=== PATIENT | female | born 1935 | race Hispanic/Latino ===

== ENCOUNTER 2018-02-27 19:57 | Inpatient (IN) | payer BC, MEDICARE ==
[2018-02-27 20:05] VITALS: BMI 25.7
--- NOTE | 2018-02-27 20:35 | EDPD ---
HPI Stroke - General Time Seen by Provider: 02/27/18 20:00 Chief Complaint: Weakness/Neurological Deficit Historian: Patient, EMS - History of Present Illness Narrative History of Present Illness (Free Text): 02/27/18 20:04 82 year old female, with past medical history of hypertension, breast CA, colitis, nerve palsy, and cardiac stents x2, presents to the Emergency Department via EMS for evaluation of transient slurred speech at home earlier today. Patient states symptoms first began approximately 10 am this morning and again later in the day noted by her daughter. Upon EMS arrival they state it was slightly noted but transient.Patient was brought to the Emergency Department for possible CVA. Patient expressed no focal weakness upon arrival to the Emergency Department.Occasional "tingling" sensation to fingers.Patient is currently asymptomatic with no somatic complaints. Patient denies any headache, dizziness, visual changes, neck pain, back pain, fever, chills, nausea , vomiting, diarrhea, abdominal pain, chest pain, numbness/tingling or any other complaints. PMD: Dr. Liu Onset:: This morning Timing: Resolved Context: Home Exacerbated by: Nothing Relieved by: Nothing - Location Location: Speech - Pain Assessment/Levels Maximum Severity: None Severity Current: None rTPA Inclusion/Exclusion - Refusal of Treatment Patient Refused Treatment: No - Inclusion Criteria for Altepase Patient is 18 years or Older: Yes The Clinical Diagnosis of Ischemic Stroke That is Causing a Potentially Disabling Neurological Deficit: No Time of Onset is Well Established to be Less Than 270 Minute Before Treatment Would Begin: No Risk/Benefit Discussed With Patient/Family Member Present: Yes - Exclusion Criteria for Altepase Uncontrolled Hypertension at Time of Treatment (Systolic BP above 185 or Diastolic BP above 110 mmHg): No Active Internal Bleeding: No Known Bleeding Diathesis Including but Not Limited to: Platelets Below 100,000/ mm,PTT Above 40 sec After Heparin Use, Current Use of Oral Anitcoagulant With INR Greater Than 1.7 or PT Greater Than 15 secs: No Evidence of an Intracranial Hemorrhage: No Evidence of Major Acute Infarct With Signs Greater Than 1/3 MCA Territory: No Suspicion of Subarachnoid Hemorrhage on Pretreatment Evaluation Even if CT Head Negative For Hemorrhage: No - Warning to TPA With Conditions Following Conditions Weighed Against Anticipated Benefit: Yes Condition: Rapid Improvement Past Medical History - Provider Review Nursing Documentation Reviewed: Yes - Cardiac Hx Hypertension: Yes Hx Pacemaker: No - Pulmonary Hx Respiratory Disorders: No - Neurological Hx Neurological Disorder: No - HEENT Other/Comment: eye issues - Endocrine/Metabolic Hx Endocrine Disorders: No - Hematological/Oncological Hx Blood Transfusions: No Hx Blood Transfusion Reaction: (NA) - Integumentary Hx Dermatological Disorder: No - Musculoskeletal/Rheumatological Hx Musculoskeletal Disorders: No - Gastrointestinal Hx Colitis: Yes - Genitourinary/Gynecological Hx Genitourinary Disorders: No - Psychiatric Hx Psychophysiologic Disorder: No Hx Emotional Abuse: No Hx Physical Abuse: No Hx Substance Use: No - Surgical History Hx Coronary Stent: Yes (2 stents) - Anesthesia Hx Anesthesia: Yes Hx Anesthesia Reactions: No Hx Malignant Hyperthermia: No - Suicidal Assessment Feels Threatened In Home Enviroment: No Family/Social History - Family/Social History Family History: Non-Contributory Allergies/Home Meds Allergies/Adverse Reactions: Allergies Penicillins Allergy (Verified 02/27/18 20:05) RASH Home Medications: Home Meds Medication Instructions Recorded Confirmed Aspirin [Ecotrin] 81 mg PO DAILY 02/21/14 02/27/18 [place]/Ca/Cu/mg/Mn/Vit C/Vit 1 tab PO DAILY 02/21/14 02/27/18 [Oscal Ultra 600] Brimonidine 0.15% [Alphagan P 5 Ml] 1 drop OU TID 02/21/14 02/27/18 Coenzyme Q10/Vitamin E [Coq10 in 1 sgl PO DAILY 02/21/14 02/27/18 Oil 100 mg-30 Iu] Folic Acid 1 mg PO DAILY 02/21/14 02/27/18 Hydrochlorothiazide [HCTZ] 12.5 mg PO DAILY 02/21/14 02/27/18 Isosorbide Dinitrate 30 mg PO DAILY 02/21/14 02/27/18 Mesalamine [Lialda] 2.4 gm PO DAILY 02/21/14 02/27/18 Metoprolol Succinate 25 mg PO BID 02/21/14 02/27/18 Multivitamin and [id number] 1 tab PO DAILY 02/21/14 02/27/18 [Centrum Silver] [place]wood-3 Fatty Acids/Fish Oil [Fish 1,000 mg PO DAILY 02/21/14 02/27/18 Oil 1,000 mg Softgel] Simvastatin 20 mg PO DAILY 02/21/14 02/27/18 Vitamin E 400 iu PO DAILY 02/21/14 02/27/18 Latanoprost [Xalatan] 1 drop OS HS 02/27/18 02/27/18 Review of Systems - Physician Review All systems were reviewed & negative as marked: Yes - Review of Systems Constitutional: absent: Fevers Respiratory: absent: SOB Cardiovascular: absent: Chest Pain Gastrointestinal: absent: Abdominal Pain, Diarrhea, Nausea, Vomiting Musculoskeletal: absent: Back Pain, Neck Pain Neurological: Speech Changes. absent: Headache, Dizziness, Focal Weakness, Facial Droop ED Stroke Physical Exam Vital Signs Reviewed: Yes Vital Signs Pulse Resp BP Pulse Ox 02/27/18 20:00 74 16 117/69 95 Temperature: Afebrile Blood Pressure: Normal Pulse: Regular Respiratory Rate: Normal Appearance: Positive for: Well-Appearing, Non-Toxic, Comfortable Pain Distress: None Mental Status: Positive for: Alert and Oriented X 3 Finger Stick Blood Glucose: 137 - Systems Exam Head: Present: Atraumatic, Normocephalic Pupils: Present: PERRL Extroacular Muscles: Present: EOMI Conjunctiva: Present: Normal Mouth: Present: Moist Mucous Membranes, Other (slight deformity left mandible( old)) Neck: Present: Normal Range of Motion Respiratory/Chest: Present: Clear to Auscultation, Good Air Exchange. No: Respiratory Distress, Accessory Muscle Use Cardiovascular: Present: Regular Rate and Rhythm, Normal S1, S2. No: Murmurs Abdomen: Present: Normal Bowel Sounds. No: Tenderness, Distention, Peritoneal Signs Genitourinary/Pelvic Exam: Present: NI. No: C, E Back: Present: GCS, CN, SP Upper Extremity: Present: Normal Inspection. No: Cyanosis, Edema Lower Extremity: Present: Normal Inspection. No: Edema Neurologic: Present: GCS=15, CN II-XII Intact, Speech Normal, Motor Func Grossly Intact, Normal Sensory Function, Memory Normal Skin: Present: Warm, Dry, Normal Color. No: Rashes Lymphatic: Present: OX3, NI, NC Psychiatric: Present: Alert, Oriented x 3, Normal Insight, Normal Concentration Medical Decision Making ED Course and Treatment: 02/27/18 20:04 Impression: 82 year old female presents to the Emergency Department for transient episode of slurred speech. Differential Diagnosis included but are not limited to: CVA Plan: -- Blood type and Screen -- CT of head -- EKG -- Labs -- Chest X-ray -- Plavix -- IV Fluids -- Reassess and disposition Prior Visits: Notes and results from previous visits were reviewed. Progress Notes: 02/27/18 20:04 CODE STROKE ACTIVATED. 02/27/18 20:[address] Mccall, who is aware and agrees with Emergency Department management plan, recommends to administer Plavix [address] of head is negative. As per Dr. Mccall, patient is currently on daily Ecotrin and does not need aspirin at the time. 02/27/18 20:20 CT of head reviewed by radiologist, shows no acute intracranial findings. Chest X-ray reviewed, shows no acute processes. 02/27/18 20:15 EKG: Ordered, reviewed, and independently interpreted the EKG. Rate : 74 BPM Rhythm : NSR Interpretation : Sinus arrhythmia, anteroseptal infarct. 02/27/18 23:[address] Mayberry, covering for Dr. Tabares, who is aware and agrees with plan. Pt will go to Telemetry observation for TIA. - Lab Interpretations I have reviewed the lab results: Yes - RAD Interpretation Radiology Orders: 02/27/18 20:06 HEAD W/O (CODE STROKE) [CT] Stat CHEST PORTABLE [RAD] Stat Final Inspector Shuttle: ED Physician, Radiologist - EKG Interpretation Interpreted by ED Physician: Yes Type: 12 lead EKG - Medication Orders Current Medication Orders: Sodium Chloride (Sodium Chloride 0.9%) 1,000 mls @ 100 mls/hr IV .Q10H ARABELLA - Scribe Statement The provider has reviewed the documentation as recorded by the Scribe Idalmis Laura. All medical record entries made by the Scribe were at my direction and personally dictated by me. I have reviewed the chart and agree that the record accurately reflects my personal performance of the history, physical exam, medical decision making, and the department course for this patient. I have also personally directed, reviewed, and agree with the discharge instructions and disposition. NIHSS Scale ([place]) Time Performed: 08:05 - How Severe is the Stoke Baseline Level of Consciousness: 0=Alert LOC to Questions: 0=Both comments correct LOC to commands: 0=Obeys both correctly Best Gaze: 0=Normal Visual: 0=No visual loss Facial: 0=Normal Motor Arm - Left: 0=No drift Motor Arm - Right: 0=No drift Motor Leg - Left: 0=No drift Motor Leg - Right: 0=No drift Limb Ataxia: 0=Absent Sensory: 0=Normal Best Language: 0=No aphasia Dysarthia: 0=Normal articulation Extinction & Inattention (Neglect): 0=Normal, no object Score: 0 Risk Level: No Stroke Risk Disposition/Present on Arrival - Present on Arrival Any Indicators Present on Arrival: No History of DVT/PE: No History of Uncontrolled Diabetes: No Urinary Catheter: No History of Decub. Ulcer: No History Surgical Site Infection Following: None - Disposition Have Diagnosis and Disposition been Completed?: Yes Diagnosis: TIA (transient ischemic attack) Disposition: HOSPITALIZED Disposition Time: 22:20 Patient Plan: Admission Patient Problems: Current Active Problems Problem Status Onset TIA (transient ischemic attack) Acute Condition: STABLE
[2018-02-27 21:10] LABS: BASO # 0.02 K/mm3 (0.0-2.0); BASO % 0.3 % (0.0-3.0); EOS # 0.2 (0.0-0.7); EOS % 2.5 % (1.5-5.0); GRAN # 4.15 (1.4-6.5); GRAN % 61.7 % (50.0-68.0); LYMPH % 29.8 % (22.0-35.0); MEAN CELL VOLUME 91.3 fl (80.0-105.0); MEAN CORPUSCULAR HEMOGLOBIN 31.1 pg (25.0-35.0); MEAN CORPUSCULAR HGB CONC 34.1 g/dl (31.0-37.0); MEAN PLATELET VOLUME 10.2 fl (7.0-11.0); MONO # 0.4 (0.1-0.6); MONO % 5.7 % (1.0-6.0); RBC 4.5 10^6/uL (3.5-6.1); RED CELL DISTRIBUTION WIDTH 13.5 % (11.5-14.5); WHITE BLOOD COUNT 6.7 10^3/ul (4.5-11.0)
[2018-02-27 21:13] LABS: ALB/GLOB RATIO 1.3 (1.1-1.8); ALBUMIN 3.8 g/dL (3.0-4.8); ALT/SGPT 32 U/L (7-56); AST/SGOT 25 U/L (14-36); BLOOD UREA NITROGEN 17 mg/dL (7-21); CALCIUM 9.1 mg/dL (8.4-10.5); GFR AFRICAN-AMERICAN > 60; GFR NON-AFRICAN AMERICAN > 60; HDL CHOLESTEROL 53 mg/dL (29-60)
[2018-02-27 21:18] LABS: INR 0.94; PARTIAL THROMBOPLASTIN TIME 25.7 Seconds (25.1-36.5); PROTHROMBIN TIME 10.7 SECONDS (9.4-12.5)
[2018-02-27 21:24] LABS: LDL CHOLESTEROL 89 mg/dL (0-129)
[2018-02-27 21:27] LABS: TROPONIN I < 0.01 ng/mL
[2018-02-27] MEDS: Sodium Chloride 0.9% 1,000 ML IV SCH (22:14)
[2018-02-28] MEDS ORDERED: Metoprolol Succinate 25 mg XL Tab PO SCH ×2 (01:00→10:00)
--- NOTE | 2018-02-28 02:02 | HP ---
Copied To: Lolis Mayberry MD Attending MD: Lolis Mayberry MD DATE OF EXAM: 02/27/2018 HISTORY OF PRESENT ILLNESS: Ms. Major is an 82-year-old female presented to the ED with a history of transit slurred speech at home earlier today. She was brought to the ED by daughter. She has history of hypertension, breast cancer in the past, colitis, cardiac stent placed. Speech was normal upon arrival to the ED. She also complained of tingling sensation in the finger. CT head was unremarkable/stroke code was called. She was given Plavix [address] Newell, she has uncontrolled hypertension on arrival, TPA was not considered because of high risk. PAST MEDICAL HISTORY: Hypertension and breast cancer, coronary stent placement, history of colitis, hypertension, coronary artery disease. PAST SURGICAL HISTORY: Coronary stent placement and breast surgery. ALLERGIES: PENICILLIN HOME MEDICATIONS: Aspirin 81 mg daily, coenzyme Q, folic acid, hydrochlorothiazide 12.5 mg daily, isosorbide dinitrate 30 mg daily, metoprolol 25 mg p.o. b.i.d., simvastatin 20 mg daily, vitamin E. REVIEW OF SYSTEMS: As per HPI. Rest of 12-point review of systems reviewed negative. PHYSICAL EXAMINATION: VITAL SIGNS: Comfortable in bed, in no acute distress. VITAL SIGNS: Temperature 98.7, heart rate 74 per minute, respiratory 16 per minute, blood pressure 117/69. HEENT: No pallor. NECK: No lymphadenopathy. CHEST: Air entry present and equal bilateral. No added sound. CARDIOVASCULAR: S1 and S2 normal. No murmur. No gallop. ABDOMEN: Soft, nontender. No hepatosplenomegaly. EXTREMITIES: No edema. [employer]: Cranial nerves intact. No focal sensory or motor deficit. Spine nontender. SKIN: No petechia and no rash. LABORATORY DATA: CAT scan of the head reportedly negative. EKG, no ST-T changes. ASSESSMENT/PLAN: 1. Transient ischemic attack. 2. Coronary artery disease. 3. Hypertension. 4. History of breast cancer. PLAN: She is admitted to the hospital, aspirin and Plavix given in the ED and Neurology consultation, Dr. Newell requested. CAT scan of the head unremarkable. We will continue home medication aspirin 81 mg daily, continue beta-kulwinder 25 mg p.o. b.i.d., mesalamine 2.4 g daily, IV fluid at 100 mL an hour. Lolis Mayberry MD
[2018-02-28] MEDS: Sodium Chloride 0.9% 1,000 ML IV SCH (07:22)
[2018-02-28] MEDS ORDERED: MESALAMINE 2.4 GM PO SCH (10:00)
--- NOTE | 2018-02-28 10:22 | CT ---
Date of service: 02/27/2018 PROCEDURE: CT HEAD WITHOUT CONTRAST. HISTORY: Code Stroke COMPARISON: Comparison made with prior MRI brain 06/13/2017 TECHNIQUE: Axial computed tomography images were obtained through the head/brain without intravenous contrast. Radiation dose: Total exam DLP = 866.06 mGy-cm. This CT exam was performed using one or more of the following dose reduction techniques: Automated exposure control, adjustment of the mA and/or kV according to patient size, and/or use of iterative reconstruction technique. FINDINGS: HEMORRHAGE: No acute parenchymal, subarachnoid or extra-axial hemorrhage. BRAIN: Previously noted mild diffuse/confluent chronic periventricular white matter ischemic changes extending peripherally into the deep and subcortical white matter both cerebral hemispheres less well seen when compared with prior MRI multiple more discrete deep and subcortical white matter, basal nuclei as well as to a lesser degree brainstem lacunar type infarcts are also less well seen when compared with the prior MRI. Note that the possibility of a small hyperacute infarct cannot be excluded on this study and there is any concern, consider followup MRI with diffusion imaging. Moderate to fairly significant generalized volume loss. . Note again made of extra-axial calcification that measures approximately 12.3 by 6.6 mm right parietal region. This probably represents a dural base calcification. The possibility of a small calcified meningioma not completely excluded. Vascular calcifications both carotid siphons and vertebral arteries. VENTRICLES: No obstructive hydrocephalus. CALVARIUM: Calvarium intact PARANASAL SINUSES: Unremarkable as visualized. No significant inflammatory changes. MASTOID AIR CELLS: Unremarkable as visualized. No inflammatory changes. OTHER FINDINGS: None. IMPRESSION: No acute intracranial hemorrhage. Chronic white matter basal nuclei and brainstem ischemic changes. Note that the possibility of a small hyperacute infarct cannot be excluded on this study. Moderate to fairly significant generalized volume loss. Of probable dural base calcification right parietal region however the possibility of a small calcified meningioma not excluded. Preliminary report provided by overnight radiology service.
[2018-02-28] MEDS: Aspirin 325 mg EC Tablets PO SCH (11:21)
[2018-02-28 12:44] LABS: FOLATE > 20.0 ng/mL
--- NOTE | 2018-02-28 13:02 | RAD ---
Date of service: 02/27/2018 HISTORY: Code Stroke COMPARISON: No prior. FINDINGS: LUNGS: No active pulmonary disease. PLEURA: No significant pleural effusion identified, no pneumothorax apparent. CARDIOVASCULAR: Heart size upper limits of normal/ borderline enlarged. The the OSSEOUS STRUCTURES: No significant abnormalities. VISUALIZED UPPER ABDOMEN: Normal. OTHER FINDINGS: None. IMPRESSION: No active disease.
--- NOTE | 2018-02-28 14:29 | MRI ---
Date of service: 02/28/2018 PROCEDURE: MRI BRAIN WITHOUT CONTRAST HISTORY: r/o CVA COMPARISON: Comparison made with prior CT scan of the brain 05/2018. TECHNIQUE: Multiplanar, multisequence MR images of the brain were obtained without intravenous contrast enhancement. FINDINGS: HEMORRHAGE: No acute parenchymal, subarachnoid nor extra-axial hemorrhage. No evidence of hemosiderin deposition is identified on gradient echo weighted sequence. DWI: There is a small elliptical shaped acute infarct in the left parasagittal midpons BRAIN PARENCHYMA: Mild -moderate diffuse/ confluent chronic periventricular white matter ischemic changes extending peripherally into the deep and subcortical white matter both cerebral hemispheres as well as multiple more discrete chronic appearing lacunar type infarcts scattered about deep and subcortical white matter, both basal nuclei and both cerebellar hemispheres also seen to better advantage on the current exam. There also appear to be a 1 or 2 tiny chronic appearing right-sided pontine lacunar type infarcts. Moderate generalized volume loss. VENTRICLES: No obstructive hydrocephalus. CRANIUM: Unremarkable. ORBITS: Orbits and contents grossly unremarkable. PARANASAL SINUSES/MASTOIDS: Clear VASCULAR SYSTEM: Visualized major vascular flow voids at skull base patent. OTHER FINDINGS: None. IMPRESSION: Small elliptical shaped acute infarct left mid olivia. Mild -moderate diffuse/ confluent chronic periventricular white matter ischemic changes extending peripherally into the deep and subcortical white matter both cerebral hemispheres as well as multiple more discrete chronic appearing lacunar type infarcts scattered about deep and subcortical white matter, both basal nuclei and both cerebellar hemispheres also seen to better advantage on the current exam. There also appear to be a 1 or 2 tiny chronic appearing right-sided pontine lacunar type infarcts. Moderate generalized volume loss. No acute intracranial hemorrhage. 2 Rikki Waite informed these findings at approximately 2:20 p.m. with written down and read back verification.
--- NOTE | 2018-02-28 14:35 | MRI ---
Date of service: 02/28/2018 PROCEDURE: Magnetic Resonance Angiography Brain HISTORY: r/o CVA COMPARISON: Comparison made with concurrent MRI of the brain as well as prior CT scan brain 02/27/2018 the TECHNIQUE: 3D time of flight MR angiography of the intracranial arteries was performed. Rotating maximum intensity projection images were generated. FINDINGS: INTERNAL CAROTID ARTERIES: Unremarkable. The skull base, petrous, cavernous and supraclinoid segments are bilaterally patent however there does appear to be some irregularity and some minimal narrowing of the distal cavernous carotid segments more so on the left side. Findings likely due to atherosclerotic disease calcified atherosclerotic disease seen to better advantage on prior bone window sequence of the prior CT scan brain ANTERIOR CEREBRAL ARTERIES: Unremarkable. A1 and A2 segments are widely patent. Smaller distal branches unremarkable, as visualized. MIDDLE CEREBRAL ARTERIES: Unremarkable. M1 and M2 segments are widely patent. Perisylvian branches grossly symmetric. POSTERIOR CIRCULATION: Distal Vertebral Arteries and Basilar Artery: Asymmetry of the distal vertebral arteries, right-sided which is larger in caliber/ more dominant than the left side. Basilar artery appears patent although there is a local area of slight caliber change in the distal 1/3 of the basilar artery of which could represent a localized area of the tortuosity and signal dropout versus mild localized stenosis. . Posterior Cerebral Arteries: origin of the right posterior cerebral artery. Posterior Inferior Cerebellar Arteries: Unremarkable. ANEURYSM/ VASCULAR MALFORMATIONS: No evidence of large aneurysm or vascular malformation OTHER FINDINGS: None. IMPRESSION: Mild atherosclerotic plaque changes both cavernous carotid segments with slight irregular narrowing of the distal cavernous segments. Asymmetry of the distal vertebral arteries, right-sided which is larger in caliber/ more dominant than the left side. Basilar artery appears patent although there is a local area of slight caliber change in the distal 1/3 of the basilar artery of which could represent a localized area of the tortuosity and signal dropout versus mild localized stenosis. . Posterior Cerebral Arteries: origin of the right posterior cerebral artery.
[2018-02-28] MEDS: Brimonidine 0.15% 50 DROP/5 ML BOTTLE OU SCH ×2 (15:54→21:54)
[2018-02-28] MEDS: [UNRECOGNIZED DRUG - OTHER] OS SCH (15:55)
--- NOTE | 2018-02-28 16:21 | CARD ---
APPROVED REPORT Date of service: 02/27/2018 EKG Measurement Heart [id number] <Conclusion> Sinus rhythm with marked sinus arrhythmia with premature atrial complexes Minimal voltage criteria for LVH, may be normal variant Anteroseptal infarct, age undetermined Abnormal ECG
[2018-02-28] MEDS ORDERED: SIMVASTATIN 20 MG PO SCH ×2 (17:00→18:41)
--- NOTE | 2018-02-28 17:52 | CP.PCM.CON ---
History of Present Illness - History of Present Illness History of Present Illness: Neurology Consultation Note: Mrs. Major is an 82-year-old woman with a past medical history of hypertension, breast cancer, colitis, facial nerve palsy, and CAD (s/p 2 stents) , who presented to the ED with complaints of slurred speech that started this morning. Her symptoms were improving. Her initial NIHSS was 2. She was not a candidate for IV tPA due to resolving symptoms. CT scan of the head did not show any acute findings. MRI of the brain was consistent with a small left mid- pontine acute ischemic stroke. MRA of the head was concerning for a focal basilar artery stenosis. Review of Systems - Review of Systems All systems: reviewed and no additional remarkable complaints except Past Patient History - Past Social History Smoking Status: Never Smoked - CARDIAC Hx Cardiac Disorders: Yes (Cardiac stents X 2) Hx Hypertension: Yes - PULMONARY Hx Respiratory Disorders: No - NEUROLOGICAL Hx Neurological Disorder: No - HEENT Hx HEENT Problems: Yes Other/Comment: eye issues - RENAL Hx Chronic Kidney Disease: No - ENDOCRINE/METABOLIC Hx Endocrine Disorders: No - HEMATOLOGICAL/ONCOLOGICAL Hx Cancer: Yes (breast) - INTEGUMENTARY Hx Dermatological Problems: No - MUSCULOSKELETAL/RHEUMATOLOGICAL Hx Musculoskeletal Disorders: No Hx Falls: No - GASTROINTESTINAL Hx Gastrointestinal Disorders: Yes (Colitis) - GENITOURINARY/GYNECOLOGICAL Hx Genitourinary Disorders: No - PSYCHIATRIC Hx Psychophysiologic Disorder: No Hx Emotional Abuse: No Hx Physical Abuse: No Hx Substance Use: No - SURGICAL HISTORY Hx Surgeries: Yes (Right breast lumpectomy) Hx Coronary Stent: Yes (2 stents) - ANESTHESIA Hx Anesthesia: Yes Hx Anesthesia Reactions: No Hx Malignant Hyperthermia: No Meds Allergies/Adverse Reactions: Allergies Allergy/AdvReac Type Severity Reaction Status Date / Time Penicillins Allergy RASH Verified 02/27/18 20:05 - Medications Medications: Current Medications Aspirin (Ecotrin) 325 mg PO DAILY [facility] Last Admin: 02/28/18 11:21 Dose: 325 mg Brimonidine Tartrate (Alphagan P 0.15% Opht) 1 drop OU Q8H [facility] Last Admin: 02/28/18 15:54 Dose: 1 drop Clopidogrel Bisulfate (Plavix) 75 mg PO DAILY [facility] Last Admin: 02/28/18 15:37 Dose: 75 mg Furosemide (Lasix) 20 mg PO DAILY [facility] Last Admin: 02/28/18 11:21 Dose: 20 mg Home Med (Home Med) 1 unit PO DIN [facility] Home Med (Home Med) 1 unit PO BRK [facility] Home Med (Home Med) 1 unit OS DAILY [facility] Last Admin: 02/28/18 15:55 Dose: 1 unit Sodium Chloride (Sodium Chloride 0.9%) 1,000 mls @ 100 mls/hr IV .Q10H [facility] Last Admin: 02/28/18 07:22 Dose: Not Given Isosorbide Dinitrate (Isordil) 30 mg PO DAILY [facility] Last Admin: 02/28/18 09:23 Dose: 30 mg Latanoprost (Xalatan Opht) 0 ml OS HS [facility] Metoprolol Tartrate (Lopressor) 25 mg PO BID [facility] Last Admin: 02/28/18 09:22 Dose: 25 mg Physical Exam - Neurological Exam Neurological exam: Alert, CN II-XII Intact, Normal Gait, Oriented x3, Reflexes Normal Additional comments: Right upper extremity with slight pronator drift. Results - Vital Signs Recent Vital Signs: Last Vital Signs Temp 98.4 F 02/28/18 12:00 Pulse 76 02/28/18 12:00 Resp 18 02/28/18 12:00 BP 135/72 02/28/18 12:00 Pulse Ox 98 02/28/18 06:00 - Labs Result Diagrams: 02/27/18 20:35 02/27/18 20:35 Labs: Laboratory Results - last 24 hr 02/28/18 02/28/18 02/28/18 06:30 06:30 06:30 ESR 17 C-React Prot High Sens 1.18 Vitamin B12 891 25-OH Vitamin D Total Folate > 20.0 02/28/18 06:30 ESR C-React Prot High Sens Vitamin B12 25-OH Vitamin D Total 13.1 L Folate Assessment & Plan (1) Ischemic stroke Assessment and Plan: The patient has multiple risk factors for stroke and appears to have a stenosis of the mid-basilar artery corresponding to the location of her most recent infarct. There is also a significant amount of chronic ischemic changes. I recommend the followin. Telemetry 2. Echocardiogram with bubble study 3. Load with Plavix 300 mg and continue aspirin 325 mg daily and Plavix 75 mg daily. Check [facility] PRU and ARU to determine platelet function testing. 4. PT/OT eval and treatment 5. Permissive HTN for the next 24-36 hours. Only treat BP that is higher than 220/110 mm Hg. 6. Fluids with NS at 100 mL/hr 7. Check HbA1c, Lipid Panel, B12, folate, TSH/T3/T4, homocysteine, hypercoagulable work-up, vitamin D level 8. Increase Zocor to 40 mg daily with goal LDL<70 mg/dL 9. Case management consult Thank you. Status: Acute Priority: High NIHSS Stroke Scale 3 - Date/Time Evaluation Performed Time Performed: 08:05 - How Severe is the Stroke Level of Consciousness: 0=Alert LOC to Questions: 0=Both comments correct Best Gaze: 0=Normal Visual: 0=No visual loss Facial: 1=Minor asymmetry Motor Arm - Left: 0=No drift Motor Arm - Right: 0=No drift Motor Leg - Left: 0=No drift Motor Leg - Right: 0=No drift Limb Ataxia: 0=Absent Sensory: 0=Normal Best Language: 0=No aphasia Dysarthia: 1=Mild to moderate slurring Extinction & Inattention (Neglect): 0=Normal, no object Severity Of Stroke: 1-4 = Minor Stroke
--- NOTE | 2018-02-28 22:07 | PN ---
Copied To: Lolis Mayberry MD Attending MD: Lolis Mayberry MD DATE: 02/28/2018 SUBJECTIVE: She is comfortable in bed, in no acute distress. She had slurring of speech before arriving to the ED, which resolved. She had been noted slurring of speech when she woke up this morning. MRI of the head is consistent with left mid pontine ischemic stroke. MRA positive for focal basilar artery stenosis. REVIEW OF SYSTEMS: As per HPI. Rest of 12-point review of systems reviewed negative. PHYSICAL EXAMINATION: GENERAL: Comfortable in bed, in no acute distress. VITAL SIGNS: Temperature 98.6, heart rate 80 per minute, respiratory rate 18 per minute, blood pressure 110/70. HEENT: No pallor. NECK: No lymphadenopathy. CHEST: Air entry present equal bilaterally. No added sounds. CARDIOVASCULAR: S1, S2 normal. No murmur. No gallop. ABDOMEN: Soft, nontender. No hepatosplenomegaly. EXTREMITIES: No edema. 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 No focal sensory motor deficit. No cranial nerve palsies. LABORATORY DATA: Labs reviewed. MEDICATIONS: Reviewed. ASSESSMENT: 1. History of breast cancer in remission, treated longtime ago. 2. Transient ischemic attack. 3. Pontine ischemic stroke, basilar artery stenosis. PLAN: She was evaluated by Neurology, Dr. Mccall. Currently on aspirin and Plavix. We will follow the recommendations. Breast cancer in remission, no evidence of recurrence. Ischemic stroke, pontine. Continue Lipitor, aspirin, Plavix, Lasix 20 mg daily, isosorbide dinitrate 30 mg daily, metoprolol 25 mg p.o. b.i.d. Lolis Mayberry MD
[2018-02-28] MEDS: Latanoprost 2.5 ml Opht Soln OS SCH (22:21)
[2018-03-01] MEDS: Sodium Chloride 0.9% 1,000 ML IV SCH (03:00)
[2018-03-01] MEDS: Brimonidine 0.15% 50 DROP/5 ML BOTTLE OU SCH ×3 (05:58→22:30)
[2018-03-01] MEDS: MESALAMINE 1.2 GM PO SCH (08:44)
[2018-03-01] MEDS: [UNRECOGNIZED DRUG - OTHER] OS SCH (09:02)
[2018-03-01] MEDS: Aspirin 325 mg EC Tablets PO SCH (09:03)
--- NOTE | 2018-03-01 09:23 | CP.PCM.PN ---
Subjective - Date & Time of Evaluation Date of Evaluation: 03/01/18 Time of Evaluation: 09:20 - Subjective Subjective: Michael Holly PGY 2 Neurology Consult Note for Dr. Matthew Patient was seen and examined at bedside. She denies any new neurological symptoms, and her slurring has improved. Per nursing staff, there are no acute overnight events. Telemetry has been discontinued this morning. Echo with bubble study is pending. She denies any weakness, numbness or tingling, headaches, changes in vision, chest pain, shortness of breath or dizziness. 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 Her right hand has been feeling "rough" for a few months, and she's been diagnosed with carpal tunnel, and her right knee is arthritic and she's had multiple injections in the joint. Objective - Vital Signs/Intake and Output Vital Signs (last 24 hours): Temp Pulse Resp BP Pulse Ox 98.4 F 93 H 20 166/76 H 92 L 03/01/18 05:52 03/01/18 09:03 03/01/18 05:52 03/01/18 09:03 03/01/18 05:52 Intake and Output: 03/01/18 03/01/18 06:59 18:59 Intake Total 1860 Output Total 3 Balance 1857 - Medications Medications: Current Medications Aspirin (Ecotrin) 325 mg PO DAILY [facility] Last Admin: 03/01/18 09:03 Dose: 325 mg Brimonidine Tartrate (Alphagan P 0.15% Opht) 1 drop OU Q8H [facility] Last Admin: 03/01/18 05:58 Dose: 1 drop Clopidogrel Bisulfate (Plavix) 75 mg PO DAILY [facility] Last Admin: 03/01/18 09:03 Dose: 75 mg Furosemide (Lasix) 20 mg PO DAILY [facility] Last Admin: 03/01/18 09:03 Dose: 20 mg Home Med (Home Med) 1 unit PO BRK [facility] Last Admin: 03/01/18 08:44 Dose: 1 unit Home Med (Home Med) 1 unit OS DAILY [facility] Last Admin: 03/01/18 09:02 Dose: 1 unit Home Med (Home Med) 2 unit PO DIN [facility] Sodium Chloride (Sodium Chloride 0.9%) 1,000 mls @ 100 mls/hr IV .Q10H [facility] Last Admin: 03/01/18 03:00 Dose: 100 mls/hr Isosorbide Dinitrate (Isordil) 30 mg PO DAILY [facility] Last Admin: 03/01/18 09:04 Dose: 30 mg Latanoprost (Xalatan Opht) 0 ml OS HS [facility] Last Admin: 02/28/18 22:21 Dose: 2.5 ml Metoprolol Tartrate (Lopressor) 25 mg PO BID [facility] Last Admin: 03/01/18 09:03 Dose: 25 mg - Labs Labs: PT 10.7 SECONDS (9.4-12.5) 02/27/18 20:35 INR 0.94 02/27/18 20:35 APTT 25.7 Seconds (25.1-36.5) 02/27/18 20:35 - Constitutional Appears: Well, Non-toxic, No Acute Distress - Head Exam Head Exam: ATRAUMATIC, NORMAL INSPECTION, NORMOCEPHALIC - Eye Exam Eye Exam: Conjunctival injection, EOMI, Normal appearance, PERRL - ENT Exam ENT Exam: Mucous Membranes Moist - Neck Exam Neck Exam: Full ROM - Respiratory Exam Respiratory Exam: NORMAL BREATHING PATTERN. absent: Respiratory Distress - Cardiovascular Exam Cardiovascular Exam: RRR, +S1, +S2 - GI/Abdominal Exam GI & Abdominal Exam: Soft. absent: Distended, Tenderness - Extremities Exam Extremities Exam: Full ROM. absent: Calf Tenderness, Pedal Edema - Back Exam Back Exam: NORMAL INSPECTION - Neurological Exam Neurological Exam: Alert, Awake, CN II-XII Intact (grossly), Oriented x3. absent: Motor Sensory Deficit Neuro motor strength exam: Left Upper Extremity: 5, Right Upper Extremity: 5, Left Lower Extremity: 5, Right Lower Extremity: 5 Additional comments: no facial droop noted symmetrical facial sensation and facial movements full ROM x4 extremities - Psychiatric Exam Psychiatric exam: Normal Mood - Skin Skin Exam: Warm Assessment and Plan - Assessment and Plan (Free Text) Assessment: 82-year-old female with a PMH of breast CA, meningioma, CAD s/p 2 stents in , colitis, HTN and prior CVA who presents with transient slurring of speech , noted to have acute ischemic stroke in left mid pontine region on MRI, and MRA concerning for focal basilar artery stenosis. Patient is on aspirin/Plavix and statin dose has been increased. Plan: Acute ischemic CVA - Continue aspirin 325 mg/Plavix 75 mg indefinitely - Continue Zocor 40 mg daily with goal LDL < 70 - Echo with bubble study - PT/OT eval and treatment - Continue permissive HTN today, only treat BP higher than 220/110 mmHg - Continue NS at 100 - Strict glycemic control - Further recs per Dr. Matthew Case was reviewed and discussed with attending, Dr. Matthew
--- NOTE | 2018-03-01 10:16 | CP.PCM.DIS ---
<AngieRosemaryJossie - Last Filed: 03/01/18 13:56> Provider - Provider Date of Admission: 02/28/18 18:30 Attending physician: Carlos Tabares MD Primary care physician: Lars Liu MD Time Spent in preparation of Discharge (in minutes): 30 Diagnosis - Discharge Diagnosis (1) Newly diagnosed diabetes Status: Acute (2) Ischemic stroke Status: Acute Priority: High Hospital Course - Lab Results Lab Results: Most Recent Lab Values WBC 6.7 10^3/ul (4.5-11.0) 02/27/18 20:35 RBC 4.50 10^6/uL (3.5-6.1) 02/27/18 20:35 Hgb 14.0 g/dL (12.0-16.0) 02/27/18 20:35 Hct 41.1 % (36.0-48.0) 02/27/18 20:35 MCV 91.3 fl (80.0-105.0) 02/27/18 20:35 MCH 31.1 pg (25.0-35.0) 02/27/18 20:35 MCHC 34.1 g/dl (31.0-37.0) 02/27/18 20:35 RDW 13.5 % (11.5-14.5) 02/27/18 20:35 Plt Count 258 10^3/uL (120.0-450.0) 02/27/18 20:35 MPV 10.2 fl (7.0-11.0) 02/27/18 20:35 Gran % 61.7 % (50.0-68.0) 02/27/18 20:35 Lymph % (Auto) 29.8 % (22.0-35.0) 02/27/18 20:35 [place] % (Auto) 5.7 % (1.0-6.0) 02/27/18 20:35 Eos % (Auto) 2.5 % (1.5-5.0) 02/27/18 20:35 Baso % (Auto) 0.3 % (0.0-3.0) 02/27/18 20:35 Gran # 4.15 (1.4-6.5) 02/27/18 20:35 Lymph # (Auto) 2.0 (1.2-3.4) 02/27/18 20:35 [place] # (Auto) 0.4 (0.1-0.6) 02/27/18 20:35 Eos # (Auto) 0.2 (0.0-0.7) 02/27/18 20:35 Baso # (Auto) 0.02 K/mm3 (0.0-2.0) 02/27/18 20:35 ESR 17 mm/hr (0.0-20.0) 02/28/18 06:30 PT 10.7 SECONDS (9.4-12.5) 02/27/18 20:35 INR 0.94 02/27/18 20:35 APTT 25.7 Seconds (25.1-36.5) 02/27/18 20:35 Sodium 142 mmol/L (132-148) 02/27/18 20:35 Potassium 3.9 mmol/L (3.6-5.0) 02/27/18 20:35 Chloride 107 mmol/L (98-107) 02/27/18 20:35 Carbon Dioxide 24 mmol/L (21-33) 02/27/18 20:35 Anion Gap 14 (10-20) 02/27/18 20:35 BUN 17 mg/dL (7-21) 02/27/18 20:35 Creatinine 0.7 mg/dl (0.7-1.2) 02/27/18 20:35 Est GFR ( Amer) > 60 02/27/18 20:35 Est GFR (Non-Af Amer) > 60 02/27/18 20:35 Random Glucose 135 mg/dL (70-110) H 02/27/18 20:35 Hemoglobin A1c 7.3 % (4.2-6.5) H 02/27/18 20:35 Calcium 9.1 mg/dL (8.4-10.5) 02/27/18 20:35 Total Bilirubin 0.5 mg/dL (0.2-1.3) 02/27/18 20:35 AST 25 U/L (14-36) 02/27/18 20:35 ALT 32 U/L (7-56) 02/27/18 20:35 Alkaline Phosphatase 67 U/L (38-126) 02/27/18 20:35 Troponin I < 0.01 ng/mL 02/27/18 20:35 C-React Prot High Sens 1.18 mg/L (1.00-3.00) 02/28/18 06:30 Total Protein 6.8 g/dL (5.8-8.3) 02/27/18 20:35 Albumin 3.8 g/dL (3.0-4.8) 02/27/18 20:35 Globulin 3.0 gm/dL 02/27/18 20:35 Albumin/Globulin Ratio 1.3 (1.1-1.8) 02/27/18 20:35 Triglycerides 165 mg/dL (35-160) H 02/27/18 20:35 Cholesterol 172 mg/dL (130-200) 02/27/18 20:35 LDL Cholesterol Direct 89 mg/dL (0-129) 02/27/18 20:35 HDL Cholesterol 53 mg/dL (29-60) 02/27/18 20:35 Vitamin B12 891 pg/mL (239-931) 02/28/18 06:30 25-OH Vitamin D Total 13.1 NG/ML (30.0-100.0) L 02/28/18 06:30 Folate > 20.0 ng/mL 02/28/18 06:30 Blood Type A POSITIVE 02/27/18 20:37 Blood Type Confirm A POSITIVE 02/27/18 22:13 Antibody Screen Negative 02/27/18 20:37 BBK History Checked No verified bt 02/27/18 20:37 - Hospital Course Hospital Course: PGY-[address] Tabares Ms Major, 82F, with Hx breast CA, CAD s/p stent on Aspirin 81, HTN, colitis, Glaucoma, and chronic red eye issue, admitted for transient slurred speech at home and tingling sensation in fingers. Code stroke was called. NIHSS 2. She was given plavix 300 in the ED. TpA was not given due to symptom resolving and low NIHSS score. VS stable in ED. SBP highest was at 176/88. EKG showed sinus 74 with sinus arrhthmia with PAC. QTc [address] (02/27) showed no acute intracranial hemorrhage, small hyperacute infarct at basal nuclei/brainstem cannot rule out. Small calfified meningioma cannot excluded. Brain MRI (02/28) showed small ellipitlcal acute infarct left mid olivia. 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 There is also significant amount of chronic ischemic changes in brain. Echocardiogram with bubble study was performed to r/o PFO. Pt should follow up with juke box mechanic for result or possible intervention as needed. Per neuro, pt should be on plavix daily and continue aspirin 325. Pending PRU and ARU to determine platelet functioning. PT and OT recommended acute rehab. During the hospital stay, her A1C was 7.3. She is diagnosed with new DM. She will be placed on insulin sliding scale for now with diabetes education. She should go to Acute rehab on insulin sliding scale for strict glycemic control and start hypoglycemic agents outpatient Her lipid was checked, zocor was increased with goal LDL < 70 Pending folate, TSH/T3/T4, homocystein, hypercoagulable work-up, vit D level. Patient should follow up with primary care doctor for these results s/r/d/w Dr. Tabares Discharge Exam - Head Exam Head Exam: ATRAUMATIC, NORMAL INSPECTION, NORMOCEPHALIC - Eye Exam Eye Exam: Conjunctival injection (chronic), EOMI, Normal appearance, PERRL - ENT Exam ENT Exam: Mucous Membranes Moist - Neck Exam Additional comments: supple - Respiratory Exam Respiratory Exam: Clear to PA & Lateral, NORMAL BREATHING PATTERN. absent: Rales, Rhonchi, Wheezes - Cardiovascular Exam Cardiovascular Exam: REGULAR RHYTHM, +S1, +S2 - GI/Abdominal Exam GI & Abdominal Exam: Normal Bowel Sounds, Soft, Unremarkable. absent: Distended , Firm, Guarding, Rigid, Tenderness - Extremities Exam Extremities exam: normal capillary refill, pedal pulses present - Neurological Exam Neurological exam: Alert, CN II-XII Intact, Oriented x3 Additional comments: move all extremities equally, motor/sensory grossly intact. coordination intact - Psychiatric Exam Psychiatric exam: Normal Affect, Normal Mood - Skin Skin Exam: Dry, Warm Discharge Plan - Discharge Medications Prescriptions: Aspirin 325 mg PO DAILY #30 tab Simvastatin 40 mg PO HS #30 tablet - Follow Up Plan Condition: STABLE Disposition: REHAB FACILITY/REHAB UNIT Additional Instructions: Follow up with neurologist for imaging result and stroke Follow up with primary care doctor for this hospitalization, new diabetes, lab work result. While at the hospital, you are on insulin sliding scale for tight blood sugar control. Recommend to start oral hypoglycemic medicine outpatient. New med: (1) plavix (2) Simvastatin 40, (3) Aspirin full strength at 325mg Referrals: Lars Liu MD [Primary Care Provider] - 1 Week Francois Mccall MD [Staff Provider] - 1 Week <Carlos Tabares - Last Filed: 03/01/18 21:18> Provider - Provider Date of Admission: 02/28/18 18:30 Attending physician: Carlos Tabares MD Primary care physician: Lars Liu MD Hospital Course - Lab Results Lab Results: Most Recent Lab Values WBC 6.7 10^3/ul (4.5-11.0) 02/27/18 20:35 RBC 4.50 10^6/uL (3.5-6.1) 02/27/18 20:35 Hgb 14.0 g/dL (12.0-16.0) 02/27/18 20:35 Hct 41.1 % (36.0-48.0) 02/27/18 20:35 MCV 91.3 fl (80.0-105.0) 02/27/18 20:35 MCH 31.1 pg (25.0-35.0) 02/27/18 20:35 MCHC 34.1 g/dl (31.0-37.0) 02/27/18 20:35 RDW 13.5 % (11.5-14.5) 02/27/18 20:35 Plt Count 258 10^3/uL (120.0-450.0) 02/27/18 20:35 MPV 10.2 fl (7.0-11.0) 02/27/18 20:35 Gran % 61.7 % (50.0-68.0) 02/27/18 20:35 Lymph % (Auto) 29.8 % (22.0-35.0) 02/27/18 20:35 [place] % (Auto) 5.7 % (1.0-6.0) 02/27/18 20:35 Eos % (Auto) 2.5 % (1.5-5.0) 02/27/18 20:35 Baso % (Auto) 0.3 % (0.0-3.0) 02/27/18 20:35 Gran # 4.15 (1.4-6.5) 02/27/18 20:35 Lymph # (Auto) 2.0 (1.2-3.4) 02/27/18 20:35 [place] # (Auto) 0.4 (0.1-0.6) 02/27/18 20:35 Eos # (Auto) 0.2 (0.0-0.7) 02/27/18 20:35 Baso # (Auto) 0.02 K/mm3 (0.0-2.0) 02/27/18 20:35 ESR 17 mm/hr (0.0-20.0) 02/28/18 06:30 PT 10.7 SECONDS (9.4-12.5) 02/27/18 20:35 INR 0.94 02/27/18 20:35 APTT 25.7 Seconds (25.1-36.5) 02/27/18 20:35 Sodium 142 mmol/L (132-148) 02/27/18 20:35 Potassium 3.9 mmol/L (3.6-5.0) 02/27/18 20:35 Chloride 107 mmol/L (98-107) 02/27/18 20:35 Carbon Dioxide 24 mmol/L (21-33) 02/27/18 20:35 Anion Gap 14 (10-20) 02/27/18 20:35 BUN 17 mg/dL (7-21) 02/27/18 20:35 Creatinine 0.7 mg/dl (0.7-1.2) 02/27/18 20:35 Est GFR ( Amer) > 60 02/27/18 20:35 Est GFR (Non-Af Amer) > 60 02/27/18 20:35 POC Glucose (mg/dL) 171 mg/dL (65-110) H 03/01/18 16:02 Random Glucose 135 mg/dL (70-110) H 02/27/18 20:35 Hemoglobin A1c 7.3 % (4.2-6.5) H 02/27/18 20:35 Calcium 9.1 mg/dL (8.4-10.5) 02/27/18 20:35 Total Bilirubin 0.5 mg/dL (0.2-1.3) 02/27/18 20:35 AST 25 U/L (14-36) 02/27/18 20:35 ALT 32 U/L (7-56) 02/27/18 20:35 Alkaline Phosphatase 67 U/L (38-126) 02/27/18 20:35 Troponin I < 0.01 ng/mL 02/27/18 20:35 C-React Prot High Sens 1.18 mg/L (1.00-3.00) 02/28/18 06:30 Total Protein 6.8 g/dL (5.8-8.3) 02/27/18 20:35 Albumin 3.8 g/dL (3.0-4.8) 02/27/18 20:35 Globulin 3.0 gm/dL 02/27/18 20:35 Albumin/Globulin Ratio 1.3 (1.1-1.8) 02/27/18 20:35 Triglycerides 165 mg/dL (35-160) H 02/27/18 20:35 Cholesterol 172 mg/dL (130-200) 02/27/18 20:35 LDL Cholesterol Direct 89 mg/dL (0-129) 02/27/18 20:35 HDL Cholesterol 53 mg/dL (29-60) 02/27/18 20:35 Vitamin B12 891 pg/mL (239-931) 02/28/18 06:30 25-OH Vitamin D Total 13.1 NG/ML (30.0-100.0) L 02/28/18 06:30 Folate > 20.0 ng/mL 02/28/18 06:30 Blood Type A POSITIVE 02/27/18 20:37 Blood Type Confirm A POSITIVE 02/27/18 22:13 Antibody Screen Negative 02/27/18 20:37 BBK History Checked No verified bt 02/27/18 20:37 - Hospital Course Hospital Course: Pt seen and examined. I have reviewed the note of the medical billing coder and agree with it. I have discussed the assessment and plan with the resident. I have reviewed the patient's labs and medications. Pt with acute CVA and will go to acute rehab. MRI was reviewed. Pt placed on ASA and Plavix. On Zocor for CVA.
[2018-03-01] MEDS: Insulin Reg-LOW-Coverage SC SCH ×3 (17:19→22:02)
--- NOTE | 2018-03-01 18:39 | CARD ---
APPROVED REPORT Date of service: 03/01/2018 EXAM: Two-dimensional and M-mode echocardiogram with Doppler and color Doppler. INDICATION CVA/ R/O PFO..BUBBLE STUDY 2D DIMENSIONS Left Atrium (2D)4.5 (1.6-4.0cm)IVSd1.0 (0.7-1.1cm) LVDd4.9 (3.9-5.9cm)PWd1.1 (0.7-1.1cm) LVDs4.0 (2.5-4.0cm)FS (%) 17.4 % LVEF (%)36.3 (>50%) M-Mode DIMENSIONS Aortic Root2.80 (2.2-3.7cm)Aortic Cusp Exc.1.30 (1.5-2.0cm) Aortic Valve AoV Peak Wetehoaz367.0cm/sAoV VTI32.9cmAO Peak GR.9mmHg LVOT Peak Mcpjkopl84.7cm/sLVOT VTI14.60cmAO Mean GR.5mmHg Mitral Valve MV E Zbhlsyku07.3cm/sMV A Qcoexfww26.0cm/sE/A ratio0.7 TDI Lateral E' Peak V4.78cm/sMedial E' Peak V3.80cm/sE/Lateral E'11.4 E/Medial E'14.3 Pulmonary Valve PV Peak Cvggbipy74.7cm/sPV Peak Grad.2mmHg Tricuspid Valve TR Peak Xopmtibj956ly/sRAP [id number] Peak Gr.23mmHg [id number] LEFT VENTRICLE The left ventricle is normal size. There is mild to moderate concentric left ventricular hypertrophy. Proximal septal thickening is noted. The systolic function is moderately impaired.EF-25-30% There is moderate hypokinesis in the apical anterior wall. Transmitral Doppler flow pattern is Grade III-reversible restrictive diastolic dysfunction. No left ventricle thrombus noted on this study. There is no ventricular septal defect visualized. There is no left ventricular aneurysm. There is no mass noted in the left ventricle. RIGHT VENTRICLE The right ventricle is normal size. There is normal right ventricular wall thickness. The right ventricular systolic function is normal. ATRIA The left atrium is mildly dilated. The right atrium size is normal. The interatrial septum is intact with no evidence for an atrial septal defect, By Bubble study and color flow. AORTIC VALVE The aortic valve is thickened but opens well. The aortic valve is moderately sclerotic. There is trace to mild aortic regurgitation. There is no aortic valvular stenosis. There is no aortic valvular vegetation. MITRAL VALVE The mitral valve is thickened but opens well. Mitral regurgitation is mild. There is no mitral valve stenosis. There is no evidence of mitral valve prolapse. TRICUSPID VALVE The tricuspid valve leaflets are thickened , but open well. There is mild tricuspid regurgitation.RVSP-33 of Hg. There is no tricuspid valve stenosis. There is no tricuspid valve prolapse or vegetation. PULMONIC VALVE The pulmonic valve is borderline thickened. Trivial PI There is no pulmonic valvular stenosis. GREAT VESSELS The aortic root is normal in size. The ascending aorta is normal in size. The pulmonary artery is normal. The IVC is normal in size and collapses >50% with inspiration. PERICARDIAL EFFUSION There is no pleural effusion. There is no pericardial effusion. <Conclusion> The left ventricle is normal size. There is mild to moderate concentric left ventricular hypertrophy. Proximal septal thickening is noted. The systolic function is moderately impaired.EF-25-30% There is trace to mild aortic regurgitation. Mitral regurgitation is mild. There is mild tricuspid regurgitation.RVSP-33 of Hg. The IVC is normal in size and collapses >50% with inspiration. There is no pericardial effusion. No Vegetation or thrombus noted. The interatrial septum is intact with no evidence for an atrial septal defect, By Bubble study and color flow.
[2018-03-01] MEDS: Latanoprost 2.5 ml Opht Soln OS SCH (21:05)
[2018-03-02] MEDS: Brimonidine 0.15% 50 DROP/5 ML BOTTLE OU SCH (06:37)
[2018-03-02 07:22] VITALS: BP 166/69; RESP 18; TEMP 98.5; O2SAT 97
[2018-03-02 07:31] LABS: BASO # 0.02 K/mm3 (0.0-2.0); BASO % 0.3 % (0.0-3.0); EOS # 0.3 (0.0-0.7); EOS % 4.5 % (1.5-5.0); GRAN # 4.09 (1.4-6.5); GRAN % 53.9 % (50.0-68.0); HEMOGLOBIN 14.7 g/dL (12.0-16.0); LYMPH # 2.5 (1.2-3.4); LYMPH % 32.5 % (22.0-35.0); MEAN CELL VOLUME 90.7 fl (80.0-105.0); MEAN CORPUSCULAR HGB CONC 34.2 g/dl (31.0-37.0); MEAN PLATELET VOLUME 10.5 fl (7.0-11.0); MONO # 0.7 (0.1-0.6); MONO % 8.8 % (1.0-6.0); RBC 4.74 10^6/uL (3.5-6.1); RED CELL DISTRIBUTION WIDTH 13.8 % (11.5-14.5); WHITE BLOOD COUNT 7.6 10^3/ul (4.5-11.0)
[2018-03-02 07:40] LABS: BLOOD UREA NITROGEN 15 mg/dL (7-21); CALCIUM 9.2 mg/dL (8.4-10.5); GFR AFRICAN-AMERICAN > 60; GFR NON-AFRICAN AMERICAN > 60
--- NOTE | 2018-03-02 09:26 | CP.PCM.DIS ---
<AngieJossie - Last Filed: 03/02/18 14:35> Provider - Provider Date of Admission: 02/28/18 18:30 Attending physician: Carlos Tabares MD Primary care physician: Lars Liu MD Time Spent in preparation of Discharge (in minutes): 30 Diagnosis - Discharge Diagnosis (1) Newly diagnosed diabetes Status: Acute (2) Ischemic stroke Status: Acute Priority: High Hospital Course - Lab Results Lab Results: Most Recent Lab Values WBC 7.6 10^3/ul (4.5-11.0) 03/02/18 07:00 RBC 4.74 10^6/uL (3.5-6.1) 03/02/18 07:00 Hgb 14.7 g/dL (12.0-16.0) 03/02/18 07:00 Hct 43.0 % (36.0-48.0) 03/02/18 07:00 MCV 90.7 fl (80.0-105.0) 03/02/18 07:00 MCH 31.0 pg (25.0-35.0) 03/02/18 07:00 MCHC 34.2 g/dl (31.0-37.0) 03/02/18 07:00 RDW 13.8 % (11.5-14.5) 03/02/18 07:00 Plt Count 287 10^3/uL (120.0-450.0) 03/02/18 07:00 MPV 10.5 fl (7.0-11.0) 03/02/18 07:00 Gran % 53.9 % (50.0-68.0) 03/02/18 07:00 Lymph % (Auto) 32.5 % (22.0-35.0) 03/02/18 07:00 [place] % (Auto) 8.8 % (1.0-6.0) H 03/02/18 07:00 Eos % (Auto) 4.5 % (1.5-5.0) 03/02/18 07:00 Baso % (Auto) 0.3 % (0.0-3.0) 03/02/18 07:00 Gran # 4.09 (1.4-6.5) 03/02/18 07:00 Lymph # (Auto) 2.5 (1.2-3.4) 03/02/18 07:00 [place] # (Auto) 0.7 (0.1-0.6) H 03/02/18 07:00 Eos # (Auto) 0.3 (0.0-0.7) 03/02/18 07:00 Baso # (Auto) 0.02 K/mm3 (0.0-2.0) 03/02/18 07:00 ESR 17 mm/hr (0.0-20.0) 02/28/18 06:30 PT 10.7 SECONDS (9.4-12.5) 02/27/18 20:35 INR 0.94 02/27/18 20:35 APTT 25.7 Seconds (25.1-36.5) 02/27/18 20:35 Sodium 142 mmol/L (132-148) 03/02/18 07:00 Potassium 4.1 mmol/L (3.6-5.0) 03/02/18 07:00 Chloride 106 mmol/L (98-107) 03/02/18 07:00 Carbon Dioxide 27 mmol/L (21-33) 03/02/18 07:00 Anion Gap 13 (10-20) 03/02/18 07:00 BUN 15 mg/dL (7-21) 03/02/18 07:00 Creatinine 0.7 mg/dl (0.7-1.2) 03/02/18 07:00 Est GFR ( Amer) > 60 03/02/18 07:00 Est GFR (Non-Af Amer) > 60 03/02/18 07:00 POC Glucose (mg/dL) 132 mg/dL (65-110) H 03/02/18 06:28 Random Glucose 132 mg/dL (70-110) H 03/02/18 07:00 Hemoglobin A1c 7.3 % (4.2-6.5) H 02/27/18 20:35 Calcium 9.2 mg/dL (8.4-10.5) 03/02/18 07:00 Total Bilirubin 0.5 mg/dL (0.2-1.3) 02/27/18 20:35 AST 25 U/L (14-36) 02/27/18 20:35 ALT 32 U/L (7-56) 02/27/18 20:35 Alkaline Phosphatase 67 U/L (38-126) 02/27/18 20:35 Troponin I < 0.01 ng/mL 02/27/18 20:35 C-React Prot High Sens 1.18 mg/L (1.00-3.00) 02/28/18 06:30 Total Protein 6.8 g/dL (5.8-8.3) 02/27/18 20:35 Albumin 3.8 g/dL (3.0-4.8) 02/27/18 20:35 Globulin 3.0 gm/dL 02/27/18 20:35 Albumin/Globulin Ratio 1.3 (1.1-1.8) 02/27/18 20:35 Triglycerides 165 mg/dL (35-160) H 02/27/18 20:35 Cholesterol 172 mg/dL (130-200) 02/27/18 20:35 LDL Cholesterol Direct 89 mg/dL (0-129) 02/27/18 20:35 HDL Cholesterol 53 mg/dL (29-60) 02/27/18 20:35 Vitamin B12 891 pg/mL (239-931) 02/28/18 06:30 25-OH Vitamin D Total 13.1 NG/ML (30.0-100.0) L 02/28/18 06:30 Folate > 20.0 ng/mL 02/28/18 06:30 Blood Type A POSITIVE 02/27/18 20:37 Blood Type Confirm A POSITIVE 02/27/18 22:13 Antibody Screen Negative 02/27/18 20:37 BBK History Checked No verified bt 02/27/18 20:37 - Hospital Course Hospital Course: PGY-[address] Tabares Ms Major, 82F, with Hx breast CA, CAD s/p stent on Aspirin 81, HTN, colitis, Glaucoma, and chronic red eye issue, admitted for transient slurred speech at home and tingling sensation in fingers. Code stroke was called. NIHSS 2. She was given plavix 300 in the ED. TpA was not given due to symptom resolving and low NIHSS score. VS stable in ED. SBP highest was at 176/88. EKG showed sinus 74 with sinus arrhthmia with PAC. QTc [address] (02/27) showed no acute intracranial hemorrhage, small hyperacute infarct at basal nuclei/brainstem cannot rule out. Small calfified meningioma cannot excluded. Brain MRI (02/28) showed small ellipitlcal acute infarct left mid olivia. 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 There is also significant amount of chronic ischemic changes in brain. Echocardiogram with bubble study was performed to r/o PFO. Pt should follow up with coil connector repairer for result or possible intervention as needed. Per neuro, pt should be on plavix daily and continue aspirin 325. Pending PRU and ARU to determine platelet functioning. PT and OT recommended acute rehab. During the hospital stay, her A1C was 7.3. She is diagnosed with new DM. She will be placed on insulin sliding scale for now with diabetes education. She should go to Acute rehab on insulin sliding scale for strict glycemic control and start hypoglycemic agents outpatient Her lipid was checked, zocor was increased with goal LDL < 70 Pending folate, TSH/T3/T4, homocystein, hypercoagulable work-up, vit D level. Patient should follow up with primary care doctor for these results Bed is available today. Pt VS stable. she will be transferred to rehab today s/r/d/w Dr. Tabares Discharge Exam - Head Exam Head Exam: ATRAUMATIC, NORMAL INSPECTION, NORMOCEPHALIC - Eye Exam Eye Exam: Conjunctival injection (chronic), EOMI, Normal appearance, PERRL. absent: Scleral icterus - ENT Exam ENT Exam: Mucous Membranes Moist - Neck Exam Additional comments: supple - Respiratory Exam Respiratory Exam: Clear to PA & Lateral. absent: Rales, Rhonchi, Wheezes - Cardiovascular Exam Cardiovascular Exam: REGULAR RHYTHM, +S1, +S2 - GI/Abdominal Exam GI & Abdominal Exam: Normal Bowel Sounds, Soft, Unremarkable - Extremities Exam Extremities exam: pedal pulses present - Back Exam Back exam: absent: CVA tenderness (L), CVA tenderness (R) - Neurological Exam Neurological exam: Alert, Oriented x3 Additional comments: move all extremities equally, motor/sensory grossly intact. coordination intact short step in gait - Psychiatric Exam Psychiatric exam: Normal Affect, Normal Mood - Skin Skin Exam: Dry, Warm Discharge Plan - Discharge Medications Prescriptions: Simvastatin 40 mg PO HS #30 tablet - Follow Up Plan Condition: STABLE Disposition: REHAB FACILITY/REHAB UNIT Instructions: Stroke (DC), Transient Ischemic Attack (DC), Blood Glucose Monitoring, Diabetes Type 2 (DC), Diabetic Meal Planning , Diabetes and Diet Additional Instructions: Follow up with neurologist for imaging result and stroke Follow up with primary care doctor for this hospitalization, new diabetes, lab work result. While at the hospital, you are on insulin sliding scale for tight blood sugar control. Recommend to start oral hypoglycemic medicine outpatient. New med: (1) plavix (2) Simvastatin 40, (3) Aspirin full strength at 325mg Referrals: Lars Liu MD [Primary Care Provider] - 1 Week Francois Mccall MD [Staff Provider] - 1 Week <Carlos Tabares - Last Filed: 03/02/18 18:59> Provider - Provider Date of Admission: 02/28/18 18:30 Attending physician: Carlos Tabares MD Primary care physician: Lars Liu MD Hospital Course - Lab Results Lab Results: Most Recent Lab Values WBC 7.6 10^3/ul (4.5-11.0) 03/02/18 07:00 RBC 4.74 10^6/uL (3.5-6.1) 03/02/18 07:00 Hgb 14.7 g/dL (12.0-16.0) 03/02/18 07:00 Hct 43.0 % (36.0-48.0) 03/02/18 07:00 MCV 90.7 fl (80.0-105.0) 03/02/18 07:00 MCH 31.0 pg (25.0-35.0) 03/02/18 07:00 MCHC 34.2 g/dl (31.0-37.0) 03/02/18 07:00 RDW 13.8 % (11.5-14.5) 03/02/18 07:00 Plt Count 287 10^3/uL (120.0-450.0) 03/02/18 07:00 MPV 10.5 fl (7.0-11.0) 03/02/18 07:00 Gran % 53.9 % (50.0-68.0) 03/02/18 07:00 Lymph % (Auto) 32.5 % (22.0-35.0) 03/02/18 07:00 [place] % (Auto) 8.8 % (1.0-6.0) H 03/02/18 07:00 Eos % (Auto) 4.5 % (1.5-5.0) 03/02/18 07:00 Baso % (Auto) 0.3 % (0.0-3.0) 03/02/18 07:00 Gran # 4.09 (1.4-6.5) 03/02/18 07:00 Lymph # (Auto) 2.5 (1.2-3.4) 03/02/18 07:00 [place] # (Auto) 0.7 (0.1-0.6) H 03/02/18 07:00 Eos # (Auto) 0.3 (0.0-0.7) 03/02/18 07:00 Baso # (Auto) 0.02 K/mm3 (0.0-2.0) 03/02/18 07:00 ESR 17 mm/hr (0.0-20.0) 02/28/18 06:30 PT 10.7 SECONDS (9.4-12.5) 02/27/18 20:35 INR 0.94 02/27/18 20:35 APTT 25.7 Seconds (25.1-36.5) 02/27/18 20:35 Sodium 142 mmol/L (132-148) 03/02/18 07:00 Potassium 4.1 mmol/L (3.6-5.0) 03/02/18 07:00 Chloride 106 mmol/L (98-107) 03/02/18 07:00 Carbon Dioxide 27 mmol/L (21-33) 03/02/18 07:00 Anion Gap 13 (10-20) 03/02/18 07:00 BUN 15 mg/dL (7-21) 03/02/18 07:00 Creatinine 0.7 mg/dl (0.7-1.2) 03/02/18 07:00 Est GFR ( Amer) > 60 03/02/18 07:00 Est GFR (Non-Af Amer) > 60 03/02/18 07:00 POC Glucose (mg/dL) 147 mg/dL (65-110) H 03/02/18 11:28 Random Glucose 132 mg/dL (70-110) H 03/02/18 07:00 Hemoglobin A1c 7.3 % (4.2-6.5) H 02/27/18 20:35 Calcium 9.2 mg/dL (8.4-10.5) 03/02/18 07:00 Total Bilirubin 0.5 mg/dL (0.2-1.3) 02/27/18 20:35 AST 25 U/L (14-36) 02/27/18 20:35 ALT 32 U/L (7-56) 02/27/18 20:35 Alkaline Phosphatase 67 U/L (38-126) 02/27/18 20:35 Troponin I < 0.01 ng/mL 02/27/18 20:35 C-React Prot High Sens 1.18 mg/L (1.00-3.00) 02/28/18 06:30 Total Protein 6.8 g/dL (5.8-8.3) 02/27/18 20:35 Albumin 3.8 g/dL (3.0-4.8) 02/27/18 20:35 Globulin 3.0 gm/dL 02/27/18 20:35 Albumin/Globulin Ratio 1.3 (1.1-1.8) 02/27/18 20:35 Triglycerides 165 mg/dL (35-160) H 02/27/18 20:35 Cholesterol 172 mg/dL (130-200) 02/27/18 20:35 LDL Cholesterol Direct 89 mg/dL (0-129) 02/27/18 20:35 HDL Cholesterol 53 mg/dL (29-60) 02/27/18 20:35 Vitamin B12 891 pg/mL (239-931) 02/28/18 06:30 25-OH Vitamin D Total 13.1 NG/ML (30.0-100.0) L 02/28/18 06:30 Folate > 20.0 ng/mL 02/28/18 06:30 Blood Type A POSITIVE 02/27/18 20:37 Blood Type Confirm A POSITIVE 02/27/18 22:13 Antibody Screen Negative 02/27/18 20:37 BBK History Checked No verified bt 02/27/18 20:37 - Hospital Course Hospital Course: Pt seen and examined. I have reviewed the note of the medical geneticist and agree with it. I have discussed the assessment and plan with the resident. I have reviewed the patient's labs and medications. Pt with acute CVA. She is going to acute rehab. Neuro saw pt and placed her on ASA an Plavix. She is on Zocor.
[2018-03-02] MEDS: Aspirin 325 mg EC Tablets PO SCH (09:41)
[2018-03-02] MEDS: MESALAMINE 1.2 GM PO SCH (09:42)
[2018-03-02] MEDS: [UNRECOGNIZED DRUG - OTHER] OS SCH (09:42)
[2018-03-02] MEDS: Insulin Reg-LOW-Coverage SC SCH (09:43)
[2018-03-02 09:50] VITALS: PULSE 69
== END 2018-03-02 14:25 | DRG 66 ==
LOC: ED 19:57 → ERH 22:21 → 2RSO 02-28 00:03 → OBSVTOIN 02-28 18:30 → 5RNO 03-01 10:32
PROVIDERS: ADMIT Internal Medicine Nephrology; ATTEND Internal Medicine Nephrology
DX: I63.9 Cerebral infarction, unspecified (principal); E11.9 Type 2 diabetes mellitus without complications; I65.1 Occlusion and stenosis of basilar artery; I10 Essential (primary) hypertension; I25.10 Atherosclerotic heart disease of native coronary artery without angina pectoris; H40.9 Unspecified glaucoma; R29.702 NIHSS score 2; Z79.02 Long term (current) use of antithrombotics/antiplatelets; Z79.82 Long term (current) use of aspirin; Z86.011 Personal history of benign neoplasm of the brain; Z85.3 Personal history of malignant neoplasm of breast; Z95.5 Presence of coronary angioplasty implant and graft